=== PATIENT | male | born 1960 | race Caucasian/White ===

== ENCOUNTER 2021-06-09 16:59 | Emergency (ER) | payer BC ==
[2021-06-09 17:09] VITALS: BP 128/85; PULSE 102; TEMP 98.8; BMI 34.0
[2021-06-09] MEDS ORDERED: BACITRACIN 3.5 GM OPTHALMIC OINT TUBE OS SCH (18:15)
== END 2021-06-09 18:28 | disposition home or self-care (01) ==
LOC: FER 16:59
DX: H01.00B Unspecified blepharitis left eye, upper and lower eyelids (principal)
CPT/HCPCS: 99283-25

== ENCOUNTER 2024-12-20 13:06 | Emergency (ER) | payer OTHER, BC ==
[2024-12-20 13:14] VITALS: BP 131/80; PULSE 73; RESP 18; TEMP 98.4; BMI 29.0
[2024-12-20] MEDS ORDERED: LIDOCAINE 5% TOPICAL PATCH ONE (13:33)
[2024-12-20] MEDS ORDERED: ACETAMINOPHEN 500 MG TABLET (FP) ONE (13:33)
[2024-12-20] MEDS ORDERED: KETOROLAC TROMETHAMINE 30 MG/1 ML VIAL ONE (13:33)
[2024-12-20] MEDS: LIDOCAINE 5% TOPICAL PATCH TP ONE (13:44)
[2024-12-20] MEDS: KETOROLAC TROMETHAMINE 30 MG/1 ML VIAL IM ONE (13:44)
[2024-12-20] MEDS: ACETAMINOPHEN 500 MG TABLET (FP) PO ONE (13:54)
[2024-12-20] MEDS ORDERED: LIDOCAINE PATCH REMOVAL MC ONE (22:00)
== END 2024-12-20 14:35 | disposition home or self-care (01) ==
LOC: FER 13:06
PROC: 3E0233Z Introduction of Anti-inflammatory into Muscle, Percutaneous Approach (ICD-10-PCS; principal; 2024-12-20)
DX: M54.50 Low back pain, unspecified (principal); W50.0XXA Accidental hit or strike by another person, initial encounter
CPT/HCPCS: 99284-25